=== PATIENT | female | born 1985 ===

== ENCOUNTER 2017-04-17 12:38 | Day surgery (SDC) | payer BC ==
[~2017-04-17] VITALS: Ht 175.3 cm; Wt 66.0 kg
[~2017-04-17 12:38] MED LIST: PRENATAL1 TA1 PO; VITAMIN D1000 IU PO
[2017-04-17] MEDS ORDERED: PERCOCET 325 MG1 TA2 PO (14:22)
[2017-04-17 14:24] VITALS: BP 141/89; PULSE 73; TEMP 98
[2017-04-17 16:30] VITALS: BP 125/78; PULSE 52; TEMP 97.8
[2017-04-17 16:45] VITALS: BP 122/80; PULSE 55
[2017-04-17 17:00] VITALS: BP 121/67; PULSE 56
== END 2017-04-17 17:20 | disposition home or self-care (01) ==
LOC: SDCO 12:38
DX: Z46.6 Encounter for fitting and adjustment of urinary device (principal); Z87.442 Personal history of urinary calculi
CPT/HCPCS: C1769; J0690; J2405; J2704; J3010; J7120